=== PATIENT | male | born 1985 | race African-American/Black ===

== ENCOUNTER → 2017-01-23 | Day surgery (SDC) | payer MEDICAID ==
[2017-01-22 12:46] LABS: Basophils # (auto) 0 uL; Basophils % (auto) 0.6 % (0.0-2.0); Eosinophils # (auto) 0.1 uL; Eosinophils % (auto) 2.4 % (0.0-7.0); Hematocrit 43.4 % (41.0-53.0); Hemoglobin 14.1 g/dL (13.5-17.5); Lymphocytes # (auto) 2.2 uL; Lymphocytes % (auto) 36.6 % (10.0-50.0); Mean Corpuscular Hemoglobin 26.5 pg (28.0-32.0); Mean Corpuscular Hgb Conc. 32.5 g/dL (32.0-36.0); Mean Corpuscular Volume 81.7 fL (80.0-100.0); Monocytes # (auto) 0.5 uL; Monocytes % (auto) 9.2 % (0.0-12.0); Neutrophils % (auto) 51.2 % (37.0-80.0); Nucleated Red Blood Cells % 0.1 %; Platelet Count (auto) 237 10^3/uL (140-450); Red Cell Distribution Width 12.8 % (11.8-14.3); White Blood Cell 5.9 10^3/uL (4.4-10.8)
[2017-01-22 12:52] LABS: Urine Bilirubin Negative (Negative); Urine Blood Negative /uL (Negative); Urine Color Yellow (Yellow); Urine Glucose Normal (Normal); Urine Ketone Negative (Negative); Urine Mucus FEW (None Seen); Urine Nitrite Negative (Negative); Urine RBC <1 /hpf (0 - 3); Urine Urobilinogen Normal (Negative)
[2017-01-22 13:01] LABS: INR 1.05 (0.9-1.15); Partial Thromboplastin Time 28.2 sec (22.64-33.71); Prothrombin Time 11.4 sec (9.37-12.3)
[2017-01-22 13:43] LABS: Albumin 3.6 g/dL (3.4-5.0); BUN/Creatinine Ratio 9.2; Bilirubin, Total 0.7 mg/dL (0.2-1.0); Calcium 8.4 mg/dL (8.5-10.1); Potassium 3.9 mmol/L (3.5-5.1); Total Protein 6.9 g/dL (6.4-8.2)
[~2017-01-23] VITALS: Ht 172.7 cm; Wt 108.9 kg
[~2017-01-23] MED LIST: ACETAMINOPHEN IV 100 ML IV ONE; BUPIVACAINE W/ EPINEPH 0.25% INJ 50ML MDV ONE; HYDR-4683 PO; KETOROLAC TROMETH 30 MG/ML 1ML VIAL IV ONE; LIDOCAINE 1% HCL (LOCAL ANESTH.) INJ 20ML MDV IJ ONE; LIDOCAINE 1% HCL (LOCAL ANESTH.) INJ 20ML MDV ONE; METOCLOPRAMIDE HCL 5MG/ml INJ 2ml VIAL ONE; MIDAZOLAM HCL 1MG/1ML-2 ML VIAL ONE; MORPHINE SULF INJ 2 MG/ML SYRINGE 1ML IV PRN; NEOMYCIN-BACITRACIN-POLYM 15GM TOP OINT TOP ONE; ONDANSETRON HCL 4 MG/2 ML VIAL IV ONE; PROPOFOL 10 MG/ML 20 ML IV ONE; QUET50TA PO; ROCURONIUM 10MG/ML 10ML VIAL IV ONE; SUCCINYLCHOLINE CHLORIDE 20 MG/ML 10ML VIAL IV ONE; fentaNYL CITRATE 100 MCG/2 ML VL ONE
[2017-01-23 19:43] VITALS: BP 135/78
== END | disposition home or self-care (01) ==
LOC: SUR 11:48
PROVIDERS: ATTEND Urology
DX: Z30.2 Encounter for sterilization (principal)
CPT/HCPCS: 55250; J2765; J3010; 36415; 80053; 81001; 85025; 85610; 85730; J0131; J0330; J2001; J2250; J2704

== ENCOUNTER 2017-03-29 13:06 | Inpatient (IN) | payer MEDICAID ==
[~2017-03-29] VITALS: Ht 172.7 cm; Wt 113.9 kg
[~2017-03-29 13:06] MED LIST changes: -ACETAMINOPHEN IV 100 ML IV ONE; -BUPIVACAINE W/ EPINEPH 0.25% INJ 50ML MDV ONE; -KETOROLAC TROMETH 30 MG/ML 1ML VIAL IV ONE; -LIDOCAINE 1% HCL (LOCAL ANESTH.) INJ 20ML MDV IJ ONE; -LIDOCAINE 1% HCL (LOCAL ANESTH.) INJ 20ML MDV ONE; -METOCLOPRAMIDE HCL 5MG/ml INJ 2ml VIAL ONE; -MIDAZOLAM HCL 1MG/1ML-2 ML VIAL ONE; -MORPHINE SULF INJ 2 MG/ML SYRINGE 1ML IV PRN; -NEOMYCIN-BACITRACIN-POLYM 15GM TOP OINT TOP ONE; -ONDANSETRON HCL 4 MG/2 ML VIAL IV ONE; -PROPOFOL 10 MG/ML 20 ML IV ONE; -ROCURONIUM 10MG/ML 10ML VIAL IV ONE; -SUCCINYLCHOLINE CHLORIDE 20 MG/ML 10ML VIAL IV ONE; -fentaNYL CITRATE 100 MCG/2 ML VL ONE
[2017-03-29 15:31] LABS: Basophils # (auto) 0.1 uL; Mean Corpuscular Hemoglobin 26.3 pg (28.0-32.0); Neutrophils # (auto) 3.8 uL; Red Cell Distribution Width 13.1 % (11.8-14.3)
[2017-03-29 15:34] LABS: Basophils % (auto) 0.7 % (0.0-2.0); Eosinophils # (auto) 0.1 uL; Eosinophils % (auto) 1.9 % (0.0-7.0); Hemoglobin 13.5 g/dL (13.5-17.5); Lymphocytes # (auto) 2.8 uL; Lymphocytes % (auto) 37.9 % (10.0-50.0); Mean Corpuscular Hgb Conc. 32.3 g/dL (32.0-36.0); Mean Corpuscular Volume 81.5 fL (80.0-100.0); Monocytes # (auto) 0.6 uL; Monocytes % (auto) 7.9 % (0.0-12.0); Neutrophils % (auto) 51.6 % (37.0-80.0); Nucleated Red Blood Cells % 0.3 %; Platelet Count (auto) 245 10^3/uL (140-450); Red Blood Cells 5.15 10^6/uL (4.5-5.90); White Blood Cell 7.4 10^3/uL (4.4-10.8)
[2017-03-29 15:42] LABS: INR 1.05 (0.9-1.15); Partial Thromboplastin Time 28.8 sec (22.64-33.71); Prothrombin Time 11.4 sec (9.37-12.3)
[2017-03-29 15:46] LABS: Albumin 3.7 g/dL (3.4-5.0); BUN/Creatinine Ratio 9.8; Bilirubin, Total 0.2 mg/dL (0.2-1.0); Calcium 8.6 mg/dL (8.5-10.1); Potassium 3.8 mmol/L (3.5-5.1); Total Protein 7.1 g/dL (6.4-8.2)
[2017-03-29] MEDS ORDERED: NALBUPHINE HCL 10 MG/1ml INJECTION IV ONE (17:00)
[2017-03-29] MEDS ORDERED: SODIUM CHLORIDE 0.9% 1,000 ML IV ONE (17:14)
[2017-03-29] MEDS ORDERED: HYDROmorphone HCL 2 MG/ML VL IV ONE (18:30)
[2017-03-29] MEDS ORDERED: ONDANSETRON HCL 4 MG/2 ML VIAL IV ONE (18:30)
[2017-03-29] MEDS ORDERED: KETOROLAC TROMETH 30 MG/ML 1ML VIAL IV ONE (19:00)
[2017-03-29] MEDS ORDERED: HYDROcodone-ACET 5/325MG TAB PO PRN (19:15)
[2017-03-29] MEDS ORDERED: LORazepam 0.5 MG TAB PO PRN (19:15)
[2017-03-29] MEDS ORDERED: ACETAMINOPHEN 500 MG TAB PO PRN (19:15)
[2017-03-29] MEDS: SODIUM CHLORIDE 0.9% 1,000 ML IV SCH (19:49)
[2017-03-29] MEDS ORDERED: cefTRIAXone 1GM/10ml IVPUSH 10 ML IV ONE (20:00)
[2017-03-29 22:00] VITALS: BP 129/75
[2017-03-29] MEDS: FAMOTIDINE 20 MG TAB PO SCH (22:00)
[2017-03-29] MEDS: TEMAZEPAM 15 MG CAP PO PRN (22:44)
[2017-03-29] MEDS: PROMETHAZINE HCL 25 MG/ML 1ML IV PRN (22:44)
[2017-03-29 23:36] VITALS: BP 129/75
[2017-03-30 05:00] VITALS: BP 114/56
[2017-03-30] MEDS: SODIUM CHLORIDE 0.9% 1,000 ML IV SCH ×2 (05:01→14:33)
[2017-03-30] MEDS: MORPHINE SULFATE 4 MG/ML SYR/VIAL IV PRN ×3 (07:56→22:05)
[2017-03-30] MEDS: PROMETHAZINE HCL 25 MG/ML 1ML IV PRN ×2 (07:57→13:06)
[2017-03-30 08:00] VITALS: BP 129/62
[2017-03-30] MEDS ORDERED: cefTRIAXone 1GM/10ml IVPUSH 10 ML IV SCH (09:00)
[2017-03-30] MEDS: FAMOTIDINE 20 MG TAB PO SCH ×2 (10:07→21:57)
[2017-03-30 12:00] VITALS: BP 144/71
[2017-03-30] MEDS ORDERED: fentaNYL CITRATE 100 MCG/2 ML VL ONE (15:59)
[2017-03-30] MEDS ORDERED: MIDAZOLAM HCL 1MG/1ML-2 ML VIAL ONE (15:59)
[2017-03-30] MEDS ORDERED: ceFAZolin 1GM/50ML 50 ML IV ONE (16:00)
[2017-03-30] MEDS ORDERED: MEPERIDINE HCL (50 MG/ML) 1 ML VIAL ONE (16:00)
[2017-03-30] MEDS ORDERED: LIDOCAINE W/ EPINEPHRINE 2% INJ 20ML VIAL ONE (16:15)
[2017-03-30] MEDS ORDERED: BUPIVACAINE HCL 50 ML ONE (16:15)
[2017-03-30] MEDS ORDERED: TRIAMCINOLONE 40MG/ML 1ML VIAL IX ONE (16:15)
[2017-03-30] MEDS ORDERED: PROPOFOL 10 MG/ML 20 ML IV ONE (16:34)
[2017-03-30] MEDS ORDERED: DEXAMETHASONE SOD PHOS 10MG/1ML VIAL INJ ONE (16:34)
[2017-03-30] MEDS ORDERED: KETOROLAC TROMETH 30 MG/ML 1ML VIAL ONE (16:35)
[2017-03-30] MEDS ORDERED: TRIAMCINOLONE 40MG/ML 1ML VIAL ONE (16:45)
[2017-03-30] MEDS ORDERED: LABETALOL HCL 5 MG/ML 4ML SYRINGE IV PRN (17:00)
[2017-03-30] MEDS ORDERED: HYDROmorphone HCL 2 MG/ML VL IV PRN (17:00)
[2017-03-30] MEDS ORDERED: MIDAZOLAM HCL 1MG/1ML-2 ML VIAL IV PRN (17:00)
[2017-03-30] MEDS ORDERED: ONDANSETRON HCL 4 MG/2 ML VIAL IV ONE (17:00)
[2017-03-30] MEDS ORDERED: ePHEDrine SULFATE 50 MG/ML AMP IV PRN (17:00)
[2017-03-30] MEDS ORDERED: KETOROLAC TROMETH 30 MG/ML 1ML VIAL IV ONE (17:00)
[2017-03-30] MEDS ORDERED: MORPHINE SULFATE 4 MG/ML SYR/VIAL IV PRN (17:00)
[2017-03-30] MEDS ORDERED: METOCLOPRAMIDE HCL 5MG/ml INJ 2ml VIAL ONE (17:04)
[2017-03-30] MEDS ORDERED: MORPHINE SULFATE 4 MG/ML SYR/VIAL IV ONE (18:00)
[2017-03-30] MEDS: TEMAZEPAM 15 MG CAP PO PRN (21:57)
[2017-03-30] MEDS: VANCOMYCIN 1GM/250ML 250 ML IV SCH (21:57)
[2017-03-30 22:00] VITALS: BP 148/85
[2017-03-31] MEDS: SODIUM CHLORIDE 0.9% 1,000 ML IV SCH ×3 (01:05→20:46)
[2017-03-31 05:00] VITALS: BP 133/83
[2017-03-31 06:41] LABS: Eosinophils # (auto) 0 uL; Hematocrit 43.6 % (41.0-53.0); Hemoglobin 13.8 g/dL (13.5-17.5); Mean Corpuscular Hgb Conc. 31.7 g/dL (32.0-36.0); Monocytes # (auto) 0.3 uL; Neutrophils # (auto) 10.7 uL; White Blood Cell 11.7 10^3/uL (4.4-10.8)
[2017-03-31 06:44] LABS: Basophils # (auto) 0.1 uL; Basophils % (auto) 0.5 % (0.0-2.0); Lymphocytes # (auto) 0.7 uL; Lymphocytes % (auto) 5.7 % (10.0-50.0); Mean Corpuscular Volume 81.9 fL (80.0-100.0); Monocytes % (auto) 2.3 % (0.0-12.0); Neutrophils % (auto) 91.5 % (37.0-80.0); Platelet Count (auto) 253 10^3/uL (140-450); Red Blood Cells 5.33 10^6/uL (4.5-5.90); Red Cell Distribution Width 12.9 % (11.8-14.3)
[2017-03-31] MEDS: MORPHINE SULFATE 4 MG/ML SYR/VIAL IV PRN ×4 (06:45→20:45)
[2017-03-31 06:58] LABS: Albumin 3.2 g/dL (3.4-5.0); BUN/Creatinine Ratio 11.7; Calcium 8.7 mg/dL (8.5-10.1); Potassium 4.6 mmol/L (3.5-5.1)
[2017-03-31 07:01] LABS: Bilirubin, Total 0.3 mg/dL (0.2-1.0); Total Protein 6.7 g/dL (6.4-8.2)
[2017-03-31 07:32] LABS: Urine Bacteria NONE SEEN /hpf (None Seen); Urine Blood Negative /uL (Negative); Urine Mucus FEW (None Seen); Urine Specific Gravity 1.017 (1.001-1.035); Urine WBC <1 /hpf (0 - 3)
[2017-03-31 08:00] VITALS: BP 138/84
[2017-03-31 09:00] VITALS: BP 138/84
[2017-03-31] MEDS: LEVOFLOXACIN 500MG 100 ML IV SCH (09:48)
[2017-03-31] MEDS: FAMOTIDINE 20 MG TAB PO SCH ×2 (09:48→21:51)
[2017-03-31] MEDS: VANCOMYCIN 1GM/250ML 250 ML IV SCH ×2 (12:21→21:51)
[2017-03-31 13:00] VITALS: BP 151/79
[2017-03-31 16:56] VITALS: BP 146/72
[2017-03-31] MEDS: PROMETHAZINE HCL 25 MG/ML 1ML IV PRN (19:41)
[2017-03-31] MEDS: TEMAZEPAM 15 MG CAP PO PRN (21:52)
[2017-03-31 21:54] VITALS: BP 149/67
[2017-04-01] MEDS: MORPHINE SULFATE 4 MG/ML SYR/VIAL IV PRN (04:54)
[2017-04-01 05:00] VITALS: BP 147/93
[2017-04-01] MEDS: SODIUM CHLORIDE 0.9% 1,000 ML IV SCH (05:16)
[2017-04-01 07:16] LABS: Basophils # (auto) 0.1 uL; Basophils % (auto) 0.6 % (0.0-2.0); Eosinophils # (auto) 0.1 uL; Eosinophils % (auto) 0.8 % (0.0-7.0); Hematocrit 41.6 % (41.0-53.0); Hemoglobin 13.2 g/dL (13.5-17.5); Lymphocytes # (auto) 3.1 uL; Lymphocytes % (auto) 21.9 % (10.0-50.0); Mean Corpuscular Hemoglobin 26.1 pg (28.0-32.0); Mean Corpuscular Hgb Conc. 31.6 g/dL (32.0-36.0); Mean Corpuscular Volume 82.7 fL (80.0-100.0); Monocytes # (auto) 0.8 uL; Monocytes % (auto) 5.8 % (0.0-12.0); Neutrophils # (auto) 9.9 uL; Neutrophils % (auto) 70.9 % (37.0-80.0); Platelet Count (auto) 231 10^3/uL (140-450); Red Blood Cells 5.03 10^6/uL (4.5-5.90); Red Cell Distribution Width 13.2 % (11.8-14.3)
[2017-04-01 07:34] LABS: BUN/Creatinine Ratio 11.8; Calcium 8.4 mg/dL (8.5-10.1); Potassium 4.2 mmol/L (3.5-5.1)
[2017-04-01 08:00] VITALS: BP 124/81
[2017-04-01 09:00] VITALS: BP 124/81
[2017-04-01] MEDS: LEVOFLOXACIN 500MG 100 ML IV SCH (10:11)
[2017-04-01] MEDS: FAMOTIDINE 20 MG TAB PO SCH (10:12)
[2017-04-01] MEDS ORDERED: VANCOMYCIN 1GM/250ML 250 ML IV SCH (12:15)
== END 2017-04-01 12:30 | disposition home or self-care (01) | DRG 483 ==
LOC: ER 13:06 → OVERFLOW 13:07 → WEST WING 21:43
PROVIDERS: ADMIT Internal Medicine; ATTEND Internal Medicine
PROC: 3E0T3BZ Introduction of Anesthetic Agent into Peripheral Nerves and Plexi, Percutaneous Approach (ICD-10-PCS; 2017-03-30)
PROC: 0VL Male Reproductive System, Occlusion (ICD-10-PCS; 2017-03-30)
PROC: 0VP Male Reproductive System, Removal (ICD-10-PCS; 2017-03-30)
PROC: 0VB90ZZ Excision of Right Testis, Open Approach (ICD-10-PCS; principal; 2017-03-30 16:17)
DX: I86.1 Scrotal varices (principal); E66.9 Obesity, unspecified; N50.811 Right testicular pain; N53.12 Painful ejaculation; F41.9 Anxiety disorder, unspecified; N43.3 Hydrocele, unspecified; N49.1 Inflammatory disorders of spermatic cord, tunica vaginalis and vas deferens; G47.00 Insomnia, unspecified; Z98.52 Vasectomy status; Z83.3 Family history of diabetes mellitus; Z68.38 Body mass index [BMI] 38.0-38.9, adult; Z79.899 Other long term (current) drug therapy; Q55.29 Other congenital malformations of testis and scrotum; Z71.89 Other specified counseling; Z90.13 Acquired absence of bilateral breasts and nipples
CPT/HCPCS: 36415; 74176; 76870; 80048; 80053; 80202; 81001; 85025; 85610; 85730; 86850; 86900; 86901; 87086; 87205; 88302; 93971; 96374; 96375; J0690; J1100; J1885; J1956; J2250; J2405; J2704; J3490